=== PATIENT | male | born 1965 | race Caucasian/White ===

== ENCOUNTER 2017-03-19 07:07 | Emergency (ER) | payer OTHER ==
[~2017-03-19] VITALS: Ht 188 cm; Wt 108.9 kg
--- NOTE | 2017-03-19 07:30 | NUR ---
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 AFEBRILE. ABLE TO SWALLOW. AWAITING FOR MD BEE
[2017-03-19] MEDS ORDERED: FAMOTIDINE (20 MG) 20 MG TABLET ONE (07:55)
[2017-03-19] MEDS ORDERED: LIDOCAINE VISCOUS 2% UD 15 ML UDC ONE (07:55)
[2017-03-19] MEDS ORDERED: predniSONE 20 MG TABLET ONE (07:55)
[2017-03-19] MEDS ORDERED: diphenhydrAMINE HCL 50 MG CAPSULE ONE (07:56)
[2017-03-19] MEDS ORDERED: diphenhydrAMINE HCL 25 MG CAPSULE PO ONE (08:00)
[2017-03-19] MEDS ORDERED: FAMOTIDINE (20 MG) 20 MG TABLET PO ONE (08:00)
[2017-03-19] MEDS ORDERED: LIDOCAINE VISCOUS 2% UD 15 ML UDC MM ONE (08:00)
[2017-03-19] MEDS ORDERED: predniSONE 10 MG TABLET PO ONE (08:00)
[2017-03-19 10:05] VITALS: BP 132/80
--- NOTE | 2017-03-19 10:06 | NUR ---
Patient discharged to home in stable condition. Written and verbal after care instructions given. Patient verbalizes understanding of instruction.
== END 2017-03-19 10:06 | disposition home or self-care (01) ==
LOC: ER 07:10
DX: K12.2 Cellulitis and abscess of mouth (principal); Z88.6 Allergy status to analgesic agent; Z88.8 Allergy status to other drugs, medicaments and biological substances
CPT/HCPCS: 99284; A4606; J7512; Q0163; Z7610